=== PATIENT | male | born 1965 | race Two or more races ===

== ENCOUNTER 2019-10-27 18:26 | Emergency (ER) | payer OTHER ==
--- OUTSIDE RECORDS SUMMARY | 2019-10-27 18:45 | XMS REPORT | Continuity of Care Document ---
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 Medicine Problems Description No Information Available Social History Type Date Description Comments Sex Unknown ETOH Use Denies alcohol use Tobacco Use Start: Unknown End: Currently using chewing 1 tin every 2-3 days Unknown tobacco Recreational Drug Use Denies Drug Use Smoking Status Reviewed: 10/19/19 Currently using chewing 1 tin every 2-3 days tobacco Allergies, Adverse Reactions, Alerts Description No Known Drug Allergies Medications Active Medications SIG Qnty Indications Ordering Provider Date Amlodipine Besylate 1 by mouth every Unknown 10mg day Tablets Losartan Potassium 1 by mouth every Unknown 50mg day Tablets Allopurinol 1 by mouth every Unknown 100mg Tablets day Zantac 75 1 by mouth daily Unknown 75mg Tablets as needed per patient Proair HFA 2 puffs every 4 Unknown 108(90Base) hours as needed mcg/Act Aerosol Immunizations Description No Information Available Vital Signs Date Vital Result Comment 10/19/2019 12:48pm Height 70 inches 5'10" Weight 397.00 lb Heart Rate 66 /min BP Systolic 138 mmHg BP Diastolic 72 mmHg O2 % BldC Oximetry 96 % BMI (Body Mass Index) 57.0 kg/m2 Neck Circumference in inches 20 Results Description No Information Available Procedures Description No Information Available Medical Devices Description No Information Available Encounters Description No Information Available Assessments Date Code Description Provider 10/19/2019 R06.83 Snoring Estephania Braswell MD 10/19/2019 Z68.43 Body mass index (BMI) 50.0-59.9, adult Estephania Braswell MD Plan of Treatment Future Appointment(s):11/21/2019 10:30 am - Maria Esther Lopez NP at [facility]10/19/2019 - Estephania Braswell, MDR06.83 SnoringNew Orders:Home Sleep Testing, Ordered: 10/19/19Follow up:2 [id number] Body mass index (BMI) 50.0-59.9, adult Functional Status Description No Information Available Mental Status Description No Information Available Referrals Description No Information Available
--- NOTE | 2019-10-27 19:08 | ED ---
HPI Chest Pain - HPI Summary HPI Summary: This patient is a 53 year old male presenting to [facility] with a chief complaint of intermittent left sided chest pain for the last 2.5 hours. He states no prior Hx of cardiovascular problems. He states he has had stress over the last week and believes it may just be anxiety related. He states it feels like a pulled muscle. He states he had the same pain 5-6 months ago and it was transient. He states the intermittent pains are also transient. He rates the pain 2/10 in severity. - History of Current Complaint Chief Complaint: EDChestPainROMI Time Seen by Provider: 10/27/19 18:54 Hx Obtained From: Patient Onset/Duration: Started Hours Ago Pain Intensity: 2 Pain Scale Used: 0-10 Numeric Associated Signs and Symptoms: Positive: Chest Pain, Recent Stress - Allergy/Home Medications Allergies/Adverse Reactions: Allergies Allergy/AdvReac Type Severity Reaction Status Date / Time No Known Allergies Allergy Verified 10/27/19 18:36 Home Medications: Home Medications Allopurinol TAB* 10/27/19 [History] Losartan TAB* 10/27/19 [History] Norvasc 5 mg TAB* 10 mg PO DAILY 10/27/19 [History Confirmed 10/27/19] Proair Respiclick 10/27/19 [History] PMH/Surg Hx/FS Hx/Imm Hx Endocrine/Hematology History: Denies: Hx Diabetes Cardiovascular History: Denies: Hx Congestive Heart Failure, Hx Hypertension History: Denies: Hx Renal Disease Infectious Disease History: No Infectious Disease History: Denies: Traveled Outside the [place] in Last 30 Days - Family History Known Family History: Positive: Other - Dementia - Social History Alcohol Use: None Substance Use Type: Reports: None Smoking Status (MU): Never Smoked Tobacco Review of Systems Negative: Fever Positive: Chest Pain All Other Systems Reviewed And Are Negative: Yes Physical Exam - Summary Physical Exam Summary: Constitutional: Well-developed, Obese, Alert. (-) Distressed Skin: Warm, Dry HENT: Normocephalic; Atraumatic Eyes: Conjunctiva normal Neck: Musculoskeletal ROM normal neck. (-) JVD, (-) Stridor, (-) Tracheal deviation Cardio: Rhythm regular, rate normal, Heart sounds normal; Intact distal pulses; Radial pulses are 2+ and symmetric. (-) Murmur Pulmonary/Chest wall: Effort normal. (-) Respiratory distress, (-) Wheezes, (-) Rales Abd: Soft, (-) tenderness, (-) Distension, (-) Guarding, (-) Rebound Musculoskeletal: (-) Edema Lymph: (-) Cervical adenopathy Neuro: Alert, Oriented x3 Psych: Mood and affect Normal Triage Information Reviewed: Yes Vital Signs On Initial Exam: Initial Vitals Temp Pulse Resp BP Pulse Ox 98.6 F 81 15 160/80 95 10/27/19 18:35 10/27/19 18:35 10/27/19 18:35 10/27/19 18:35 10/27/19 18:35 Vital Signs Reviewed: Yes Procedures - Sedation Patient Received Moderate/Deep Sedation with Procedure: No Diagnostics - Vital Signs Vital Signs Temp Pulse Resp BP Pulse Ox 10/27/19 18:57 75 19 138/81 95 10/27/19 18:54 81 94 10/27/19 18:35 98.6 F 81 15 160/80 95 - Laboratory Result Diagrams: 10/27/19 19:23 10/27/19 19:23 Lab Statement: Any lab studies that have been ordered have been reviewed, and results considered in the medical decision making process. - Radiology CXR Radiology Interpretation Completed By: ED Physician Summary of Radiographic Findings: Cardiomegaly. Pending official radiologist report. - EKG 1828 Cardiac Rate: NL - 81 BPM EKG Rhythm: Sinus Rhythm Summary of EKG Findings: No ischemic changes. Dr. Del Castillo has reviewed and interpreted this EKG. - Additional Comments Diagnostic Additional Comments: Repeat ECG at 2205: Sinus bradycardia rate 57 otherwise normal ECG Chest Pain Course/Dx - Course Course Of Treatment: This patient is a 53 year old male presenting to [facility] with a chief complaint of left sided chest pain for the last 2.5 hours. Physical exam, EKG, and CXR were unremarkable for acute problems. 1st Troponin was 0.00, 2nd Trop was 0.03. Dr. Clark, Hospitalist, accepted the patient for admission. Plan for admission was discussed with the patient and he was agreeable with this plan. Repeat troponin unexpectedly elevated, discussed with hospitalist for admission, in the interim the lab called with the corrected repeat troponin value of 0.00. Patient's symptoms not consistent with cardiac CP. Patient comfortable at this time with discharge home. PCP for follow-up - Diagnoses Provider Diagnoses: Atypical chest pain Discharge ED - Sign-Out/Discharge Documenting (check all that apply): Patient Departure - Admission Signing out patient TO: Shellie Zimmer - Discharge Plan Condition: Stable Disposition: HOME Patient Education Materials: Chest Pain (ED) Referrals: Piotr Paris MD [Primary Care Provider] - 10/29/19 Additional Instructions: Return to ED with new or worsening symptoms. Follow up with primary care provider on 10/29/2019. - Billing Disposition and Condition Condition: STABLE Disposition: Home - Attestation Statements Document Initiated by Scribe: Yes Documenting Scribe: Gelacio Serrano Provider For Whom Scribe is Documenting (Include Credential): Tong Del Castillo DO Scribe Attestation: Gelacio Martin scribed for Tong Del Castillo DO on 10/30/19 at 0733. Scribe Documentation Reviewed: Yes Provider Attestation: The documentation as recorded by the Gelacio lopez accurately reflects the service I personally performed and the decisions made by Tong faustin DO Status of Scribe Document: Viewed
[2019-10-27 19:36] LABS: ABS Basophils 0.1 10^3/ul (0-0.2); ABS Eosinophils 0.2 10^3/ul (0-0.6); ABS Lymphocytes 2.2 10^3/ul (1.0-4.8); ABS Monocytes 0.6 10^3/ul (0-0.8); ABS Neutrophils 6.6 10^3/ul (1.5-7.7); Eosinophil % 1.6 %; Hematocrit 42 % (42-52); Hemoglobin 14.4 g/dL (14.0-18.0); Lymphocyte % 22.5 %; Mean Corpuscular HGB Conc 34 g/dL (31-36); Mean Corpuscular Hemoglobin 28 pg (27-31); Mean Corpuscular Volume 81 fL (80-94); Mean Platelet Volume 8.1 fL (7.4-10.4); Platelet Count 133 10^3/uL (150-450); Red Blood Count 5.18 10^6 /uL (4.18-5.48); Red Cell Distribution Width 15 % (10-15); White Blood Count 9.7 10^3/uL (3.5-10.8)
[2019-10-27 19:44] LABS: INR 1.13 (0.82-1.09)
[2019-10-27 19:49] LABS: Albumin 4.1 g/dL (3.2-5.2); Albumin/Globulin Ratio 1.2 (1-3); BUN/Creatinine Ratio 19.5 (8-20); Calcium 9.6 mg/dL (8.6-10.3); EGFR African American 126.9 (>60); EGFR Non-African American 104.9 (>60); Globulin 3.3 g/dL (2-4); Potassium 3.7 mmol/L (3.5-5.0); Total Bilirubin 0.6 mg/dL (0.2-1.0); Total Protein 7.4 g/dL (6.4-8.9)
[2019-10-27] MEDS ORDERED: Aspirin 81 mg CHEW TAB* 81 MG TAB.CHEW PO ONE (22:12)
[2019-10-27 22:43] VITALS: BP 123/79
== END 2019-10-27 22:30 | disposition home or self-care (01) ==
LOC: ED 18:26
DX: R07.89 Other chest pain (principal); Z79.899 Other long term (current) drug therapy
CPT/HCPCS: 36415; 71045; 80053; 83880; 84484; 85025; 85610; 93005; 99283